=== PATIENT | female | born 1940 | race Caucasian/White ===

== ENCOUNTER 2019-03-03 07:36 | Inpatient (IN) | payer MEDICARE, MEDICAID, SELFPAY ==
[2019-02-20 15:19] VITALS: BP 142/63; PULSE 95; RESP 16; TEMP 37.1; O2SAT 95; BMI 31.1
[2019-02-20 15:56] LABS: Absolute Lymphocyte Count 1.29 X10^3/uL (0.83-4.51); Absolute Neutrophil Count 2.6 X10^3/uL (2.0-7.7); Basophil# 0.03 X10^3/uL; Basophil% 0.7 % (0-1); Eosinophil# 0.06 X10^3/uL; Eosinophils% 1.3 % (0-5); Hematocrit 34.2 % (37-47); Hemoglobin 11.1 g/dL (12.0-15.0); Lymphocyte # 1.29 X10^3/ul (4.0); Lymphocyte % 28.4 % (19-41); Mean Corp Hgb Conc 32.5 g/dL (32-36); Mean Corpuscular Hgb 30.5 pg (27.0-32.0); Mean Platelet Vol. 9.7 fl (6.2-12.0); Monocyte# 0.56 X10^3/uL; Monocyte% 12.3 % (0-10); NRBC Flagged by Analyzer 0 % (0-5); Neutrophil # 2.59 X10^3/uL (2.7-7.7); Neutrophil % 57.1 % (47-70); Platelet Count 198 K/mm3 (150-450); RBC Distribution Width CV 13.9 % (11.6-14.6); RBC Distribution Width SD 47.5 fl (35.1-43.9); Red Blood Count 3.64 M/mm3 (4.2-5.4); White Blood Count 4.5 K/mm3 (4.4-11.0)
[2019-02-20 16:07] LABS: Anion Gap 8 (5-15); BUN 27 mg/dL (7-18); BUN/Creat Ratio 22.5 RATIO (10-20); Calcium,Total 8.4 mg/dL (8.5-10.1); Chloride 110 mmol/L (98-107); EST Glomerular Filtration Rate 46 mL/min (>60); Est Glom Filt Rate - Afr Amer 56 mL/min (>60); Glucose 156 mg/dL (74-106); Potassium 3.9 mmol/L (3.5-5.1); Sodium Level 142 mmol/L (136-145)
[2019-03-03] VITALS (14 sets, daily range): BP systolic 97–149; BP diastolic 45–78; PULSE 66–96; RESP 15–18; TEMP 36.1–36.5; O2SAT 95–100; BMI 31.1
[2019-03-03 06:01] LABS: Bedside Glucose 165 mg/dL (70-110)
[2019-03-03] MEDS: Acetaminophen 500 MG Tablet 1000 MG PO ×3 (06:07→21:21)
[2019-03-03] MEDS: Gabapentin 600 MG Tablet PO (06:07)
[2019-03-03] MEDS: Magnesium Sulfate 4gm/100mL 4 GM/100 ML IV.SOLN. IV (06:10)
[2019-03-03] MEDS: Lactated Ringers 1,000 ML 100 ML IV ×2 (06:15→10:38)
--- NOTE | 2019-03-03 07:15 | KNEE_PTH ---
PATIENT: JASON HUYNH LOC: MS3 U#:[id number] AGE/SX: 78/F ROOM: MS305 RE03/03/[address]: Dr. Joaquin Conway DO : 1940 BED: 1 DIS: 03/06/2019 SPEC #: [id number] RECD: 03/03/19 12:17 STATUS: KAMLESH REShannan #: [id number] MAYTE: 03/03/19 07:[address]: Joaquin Conway DEPT: SURGICAL PATHOLOGY RECD BY: Sergey Shin ENTERED: 03/03/19 13:28 SP TYPE: TOTAL KNEE OTHR DR: Dr. Shira Joe MD Tissues: Knee, NOS Procedures: Decalcification bone/plaque Surgery Specimen Level IV HEADER OPERATION: ERAS, total knee replacement, left knee cortisone injection PRE-OP DIAGNOSIS: Unilateral primary osteoarthritis TISSUE SUBMITTED: Right knee bone/tissue MICROSCOPIC DIAGNOSIS Bone and soft tissue of right knee, total knee resection: Severe degenerative joint disease. Mild synovial hyperplasia with associated mild chronic inflammation. AM:camila 03/07/19 MICROSCOPIC DESCRIPTION Slides are reviewed. GROSS DESCRIPTION Received is one container designated bone and soft tissue right knee. The specimen consists of multiple fragments of carlson-yellow bone measuring in aggregate 15 x 13 x 2 cm. Also in the specimen container are multiple fragments of yellow-white soft tissue measuring in aggregate 7 x 5 x 2 cm. A number of bony fragments contain articular surfaces consistent with tibial plateau and femoral condyle and displaying prominent osteophyte formation, eburnation, and bone erosion. Advanced Manufacturing Consultant sections are submitted in two cassettes as follows: 1 - soft tissue, 2 - bone after decalcification. / AM:camila 03/03/19 TC: CPT: 82979, [id number]
[2019-03-03] MEDS: Cefazolin 2 GM in 0.9% Normal Saline 100 ML IV (07:30)
--- NOTE | 2019-03-03 09:13 | PCM.OPRPT ---
Report of Operation Date of Procedure: 03/03/19 Pre-Operative Diagnosis: QA right knee with valgus deformity Post-Operative Diagnosis: same Surgery/Procedure Performed:: Right TKR Description of Surgical Findings:: Primary Surgeon/Physician: Joaquin Conway industrial training specialist: Nas Barney PA-C industrial training specialist: Pre-Operative Diagnosis: OA bilateral knees Post-Operative Diagnosis: same Surgery/Procedure Performed: Right TKR, cortisone injection left Estimated Blood Loss: 25 cc Specimen's Removed: bone Type of Anesthesia: general ASA Class: 3 Implants: [[place] triathlon size 4 PS cemented femur, size 4 tibia, 9 mm polyethylene spacer and 29 mm patella] Indications: Patient has severe end-stage osteoarthritis diagnosed via x-rays in the knee. They have failed all forms of conservative measures including activity modification, injections, anti-inflammatories, use of assistive device. The patient has pain that affects on a daily basis and prevents him from doing things that they enjoyed. They have elected to undergo the above procedure. The risks of the procedure were discussed at length and their questions were answered. Procedure Description: The patient was greeted in the preoperative area. The [right ] knee was then marked with a surgical marker. Patient was then taken to or [address]. They were administered a dose of antibiotics as well as tranexamic acid. Once adequate anesthesia was obtained and airway was secured to placed in supine position on the operating room table. A well-padded tourniquet was placed on the affected extremity. Leg was then prepped and draped in the usual sterile fashion from the knee down. Ioban was used on the skin. Surgical timeout was then performed and confirmed with all present. Six-inch Esmarch was used to examine the limb and tourniquet was then inflated to 250 mmHg. A longitudinal incision was then planned and carried out in the anterior aspect of the knee. The dissection was then carried the length of the incision the extensor mechanism was identified. Standard medial parapatellar arthrotomy was then performed revealing severe eburnation of bone and periarticular osteophytes. There is complete loss of cartilage especially in the medial compartment with varus alignment. Anterior fat pad was removed for visualization purposes and the anterior medial aspect of the tibia was skeletonized for exposure to the knee. The knee was then flexed the patella was inverted. Opening reamer was then used in the femur approximately 1 cm anterior to the attachment of the PCL. The intramedullary valgus wand was then placed in the femur set at 5? of valgus. The distal femoral cutting jig was then applied to the femur with anticipated resection of approximately 8 mm. This was then made with a oscillating saw. The sizing guide was then placed referencing off the posterior condyles and also reference off the epicondylar axis. This was measured and the appropriate size 4-in-1 cutting jig was then applied to the distal femur. Anterior posterior cuts were made followed by the anterior and posterior chamfer cuts. These bony pieces and fragments were removed and placed on the back table. Posterior retractor was then utilized and the tibia was subluxed anteriorly. Intramedullary tibial alignment jig was then applied to the tibia referencing off the medial one third of the tibial tubercle the anterior tibial spine the middle aspect of the tibiotalar joint. Also reference off patient's wrangell slope. The tibial cutting jig was then pinned with anticipated resection of 2 mm off of the deficient medial tibial condyle. This cut was made with the oscillating saw. Once this was complete a laminar armed security professional was utilized in both medial lateral meniscus were removed and a posterior capsular osteophytes were also removed. Posterior capsule release was performed in the posterior capsule as well as the geniculate arteries are treated with the aqua Joao. The tibia was incised and the appropriate sized tibial tray was then pinned. The femoral box cutting jig was then applied to the femur and the box was prepared removing a portion of the intercondylar notch. The femoral trial was then placed and the knee was trialed. Full flexion-extension were easily achieved. The knee seemed to balance quite nicely. Any remaining osteophytes were removed at this time. Once this was complete the patella was everted and the Fusion Antibodies patella reaming device was then utilized the patella was then placed in the appropriate jig and reamer was then used to remove approximately 9 mm of the undersurface of the patella. A soft tissue remaining was in the way was removed and patella trial was then placed listed maintain excellent tracking using the no thumbs technique. The tibial tray at this point was punched to accommodate the fins of the final implant. At this point cement was mixed on the back table. The trial components were removed and the knee was copiously irrigated. Did use a cocktail of injection for postoperative pain control. The final components were then cemented in the standard fashion and excess cement was removed with cement removal tools and patellar clamp is placed in the patella. As the cement had cured in full extension tourniquet was deflated and hemostasis was perfect with Bovie cautery as well as the aqua Manus. Needle is once again trialed with different size polyethylenes to ensure the full range of motion was achieved as well as excellent balancing ligamentously was achieved. At this point the knee was copiously irrigated. Final implant was then inserted locking mechanism was engaged and confirmed to be locked. The arthrotomy was then closed with #1 Vicryl aggravate type fashion interrupted. Subcutaneous tissue was closed with 0 Vicryl and surgical cintia were placed in the skin. A occlusive silver impregnated dressing was then applied followed by well-padded sterile dressing secured with an Paxton wrap. The left knee was prepared sterilely and injected with 4 cc of 1% Lidocaine without epinephrine and 2 cc of Celestone Soluspan. The patient was taken to the PACU in stable condition. No complications known at this time. Postoperatively we will maintain standard total knee postoperative protocol. The use of the physician assistant store manager sales was integral during this procedure. They assisted with positioning, placement of the tourniquet, retracting, closure and placement of the dressing. The procedure would have been much more difficult without their expertise and assistance industrial training specialist: Nas Barney Type of Anesthesia:: General Anesthesiologist: Ari Patrick Specimen's removed: bone Estimated Blood Loss (mL): 25 cc - Admit VTE Documentation VTE Present on Admission: No VTE Mechan Device Prophylaxis: SCD's, Thigh High ELGIN Hose VTE Pharm Prophylaxis ordered?: Yes
[2019-03-03] MEDS: Betamethasone/Betamethasone 30 MG/5 ML Vial (09:45)
[2019-03-03 10:21] LABS: Hematocrit 32.1 % (37-47); Hemoglobin 10.2 g/dL (12.0-15.0); Mean Corp Hgb Conc 31.8 g/dL (32-36); Mean Corpuscular Hgb 30.6 pg (27.0-32.0); Mean Corpuscular Volume 96.4 fL (81-99); Mean Platelet Vol. 9.3 fl (6.2-12.0); Platelet Count 179 K/mm3 (150-450); RBC Distribution Width CV 14.4 % (11.6-14.6); RBC Distribution Width SD 50.4 fl (35.1-43.9); Red Blood Count 3.33 M/mm3 (4.2-5.4); White Blood Count 7.1 K/mm3 (4.4-11.0)
[2019-03-03 10:31] LABS: Anion Gap 7 (5-15); BUN 16 mg/dL (7-18); BUN/Creat Ratio 16.9 RATIO (10-20); Calcium,Total 8.3 mg/dL (8.5-10.1); Chloride 109 mmol/L (98-107); Creatinine, Serum 0.95 mg/dL (0.55-1.02); EST Glomerular Filtration Rate 61 mL/min (>60); Est Glom Filt Rate - Afr Amer 74 mL/min (>60); Estimated Creatinine Clearance 38.02 ml/min; Glucose 165 mg/dL (74-106); Potassium 3.4 mmol/L (3.5-5.1); Sodium Level 140 mmol/L (136-145)
[2019-03-03] MEDS: Lactated Ringers 1,000 ML 125 ML IV (12:01)
[2019-03-03] MEDS: Senna/Docusate Sodium 1 Tablet 2 TABLET PO ×2 (13:47→21:21)
[2019-03-03] MEDS: hydroCHLOROthiazide 12.5mg 12.5 MG PO (13:47)
--- NOTE | 2019-03-03 14:39 | CASEMGMT ---
Social Work Note RN updated this worker that pt's family is at [facility] and is asking what they will do if TCU/RU doesn't have any beds for pt. SW informed RN that RU doesn't have any beds until Sunday and to inform the family that this worker will speak with pt tomorrow regarding discharge plans as pt was just admitted to floor today. JEMIMA placed a call to referral line and provided referral. Elizabeth with TCU states they will have a bed for pt on as pt has Medicare. JEMIMA placed transfer to extended care facility document on pt's chart. Plan: TCU . JEMIMA will update pt's family tomorrow Barbara Payan MSW, LANE ATTENDANT
--- NOTE | 2019-03-03 14:50 | CASEMGMT ---
RN CM Face to Face with patient for initial transition planning/care coordination assessment. RN CM introduced self and role at [facility]. Patient lying in bed, alert and oriented. Patient willing to participate in assessment and is able to answer all questions appropriately. Care providers, pharmacy, and demographics verified. Patient wishes to discharge to TCU or [facility] SNF for additional therapy. Patient states she has no further needs or concerns at this time. JEMIMA Payan updated regarding request for TCU/SNF referral. PCP: Tatyana Specialists: jazmin Burrell Preferred Pharmacy: [facility] Insurance: [employer] MADDIE Prescription Benefit: yes Living Will/HPOA: yes, daughter Brii Walton LNOK: 2 daughters, granddaughter Living Arrangements: Patient lives with daughter, who works during the day, in a basement apartment, no steps to enter the home. Patient states she was independent prior to surgery Transportation: daughter DME/HHC: Patient states she has raised toilet, cane, and walker at home. No previous SNF or HHC. Disposition Plan: TCU vs [facility] Barbara CARDENAS, RN, CM
[2019-03-03] MEDS: Cefazolin 1 GM/50 ML BAG IV ×2 (16:19→23:24)
[2019-03-03] MEDS: Aspirin 325 MG Tablet PO (18:04)
[2019-03-03] MEDS: Atorvastatin Calcium 20 MG Tablet PO (21:21)
[2019-03-04 02:36] VITALS: BP 143/51; PULSE 75; RESP 16; TEMP 36.6; O2SAT 94
[2019-03-04 06:19] LABS: Hematocrit 28.8 % (37-47); Hemoglobin 9.5 g/dL (12.0-15.0); Mean Corpuscular Hgb 31.3 pg (27.0-32.0); Mean Corpuscular Volume 94.7 fL (81-99); Mean Platelet Vol. 9.8 fl (6.2-12.0); Platelet Count 165 K/mm3 (150-450); RBC Distribution Width SD 47.8 fl (35.1-43.9); Red Blood Count 3.04 M/mm3 (4.2-5.4)
[2019-03-04] MEDS: Acetaminophen 500 MG Tablet 1000 MG PO ×3 (06:34→21:53)
[2019-03-04 06:46] LABS: Anion Gap 7 (5-15); BUN 25 mg/dL (7-18); BUN/Creat Ratio 19.8 RATIO (10-20); Calcium,Total 7.8 mg/dL (8.5-10.1); Chloride 108 mmol/L (98-107); Creatinine, Serum 1.26 mg/dL (0.55-1.02); EST Glomerular Filtration Rate 44 mL/min (>60); Est Glom Filt Rate - Afr Amer 53 mL/min (>60); Estimated Creatinine Clearance 28.66 ml/min; Glucose 158 mg/dL (74-106); Potassium 4.2 mmol/L (3.5-5.1); Sodium Level 139 mmol/L (136-145)
[2019-03-04 07:30] VITALS: O2SAT 96
--- NOTE | 2019-03-04 07:51 | PCM.PN.ORT ---
Subjective: Patient sitting at bedside eating breakfast. Patient states she reports her pain is a 2 today. Patient denies chest pain, shortness of breath, calf pain, nausea vomiting. Patient otherwise has no other complaints. Objective: The dressing is clean dry intact. Negative signs and symptoms of DVT. Vital signs and labs within normal limits. Patient has slightly behind on her p.o. fluid intake. Patient neurovascular is otherwise intact. Patient has no respiratory distress, speaking in full sentences. - Physical Exam General: Alert, Oriented x3, Cooperative HEENT: PERRLA Oral: Moist Mucosa Psych/Mental Status: Normal Affect, Alert and oriented to time, place, person, mood and affect Vital Signs Temp Pulse Resp BP Pulse Ox 97.8 F 75 16 143/51 H 94 03/04/19 02:36 03/04/19 02:36 03/04/19 02:36 03/04/19 02:36 03/04/19 02:36 Oxygen Flow Rate (L/min) 6 Oxygen Delivery Method Room Air Weight: 74.8 kg Body Mass Index (BMI) 31.1 Intake and Output for Last 24 Hours 03/02/19 03/03/19 03/04/19 23:59 23:59 23:59 Intake Total 2668 / 3028 360 / 360 Output Total 400 / 800 460 / 460 Balance 2268 / 2228 -100 / -100 Laboratory Tests Past 24 Hrs 03/03/19 03/03/19 03/04/19 10:12 10:12 05:38 WBC 7.1 8.0 RBC 3.33 L 3.04 L Hgb 10.2 L 9.5 L Hct 32.1 L 28.8 L MCV 96.4 94.7 MCH 30.6 31.3 MCHC 31.8 L 33.0 RDW Std Deviation 50.4 H 47.8 H RDW Coeff of Tiffany 14.4 14.0 Plt Count 179 165 MPV 9.3 9.8 Sodium 140 Potassium 3.4 L Chloride 109 H Carbon Dioxide 24.0 Anion Gap 7 BUN 16 Creatinine 0.95 Estim Creat Clear Calc 38.02 Est GFR (MDRD) Af Amer 74 Est GFR (MDRD) Non-Af 61 BUN/Creatinine Ratio 16.9 Glucose 165 H Calcium 8.3 L 03/04/19 05:38 WBC RBC Hgb Hct MCV MCH MCHC RDW Std Deviation RDW Coeff of Tiffany Plt Count MPV Sodium 139 Potassium 4.2 Chloride 108 H Carbon Dioxide 24.0 Anion Gap 7 BUN 25 H Creatinine 1.26 H Estim Creat Clear Calc 28.66 Est GFR (MDRD) Af Amer 53 L Est GFR (MDRD) Non-Af 44 L BUN/Creatinine Ratio 19.8 Glucose 158 H Calcium 7.8 L Medical Necessity - Tobacco Use Smoking Status: Never smoker Tobacco Use: Non-smoker Assessment/Plan Status post right total knee arthroplasty Injected left knee intraoperatively with 2 cc of Celestone 4 cc 1% lidocaine Plan 1. Continue all pain medications as prescribed 2. Begin physical therapy today, weight-bear as tolerated with walker 3. Aspirin 325 mg 1 p.o. every 12 hours x30 days for postop DVT prophylaxis 4. Encourage incentive spirometry 5. Encourage oral fluid intake 6. Possible discharge to TCU tomorrow
[2019-03-04] MEDS: Aspirin 325 MG Tablet PO ×2 (07:53→16:38)
[2019-03-04] MEDS: Multivitamins,Ther W-Minerals Tablet 1 TABLET PO (07:53)
[2019-03-04 08:02] VITALS: BP 111/42; PULSE 80; RESP 16; TEMP 36.9; O2SAT 97
--- NOTE | 2019-03-04 10:08 | CASEMGMT ---
Social Work Note JEMIMA reviewed notes, pt walked 180ft contact guard. SW met with pt and introduced self and role at [facility]. Pt is alert and orientated x3. SW informed pt that RU doesn't have any beds at this time. Pt stats that TCU is her next choice and prefers TCU. Pt states that it would be easier for her family if she remains at [facility] as her family works during the day. JEMIMA informed pt that TCU does have a bed available and is able to accept pt . JEMIMA explained Medicare guidelines to pt. Pt states understanding, denied additional needs or concerns at this time. Plan: TCU Barbara Payan GARMENT PARTS CUTTER MACHINE, ELECTRIC RAZOR ASSEMBLER
[2019-03-04] MEDS: hydroCHLOROthiazide 12.5mg 12.5 MG PO (10:43)
[2019-03-04] MEDS: Senna/Docusate Sodium 1 Tablet 2 TABLET PO ×2 (10:43→21:52)
[2019-03-04] MEDS: Lisinopril 10 MG Tablet PO (10:43)
[2019-03-04 13:57] VITALS: BP 118/51; PULSE 80; RESP 18; TEMP 36.9; O2SAT 99
[2019-03-04 16:35] VITALS: BP 155/56; PULSE 82; RESP 16; TEMP 36.7; O2SAT 100
[2019-03-04 21:48] VITALS: BP 124/43; PULSE 83; RESP 20; TEMP 36.7; O2SAT 96
[2019-03-04] MEDS: Atorvastatin Calcium 20 MG Tablet PO (21:52)
[2019-03-04] MEDS: 0.9% NaCl Peripheral Flush Adult/Peds IV (21:54)
[2019-03-05] MEDS: traMADol 50 MG Tablet PO (01:16)
[2019-03-05 02:00] VITALS: BP 104/50; PULSE 80; RESP 20; TEMP 36.4; O2SAT 96
[2019-03-05] MEDS: Acetaminophen 500 MG Tablet 1000 MG PO ×3 (05:26→21:00)
[2019-03-05] MEDS: oxyCODONE 5 MG Tablet 2.5 MG PO (05:27)
[2019-03-05 07:33] VITALS: O2SAT 95
[2019-03-05 10:09] VITALS: BP 96/34; PULSE 78; RESP 18; TEMP 36.5; O2SAT 96
[2019-03-05] MEDS: Senna/Docusate Sodium 1 Tablet 2 TABLET PO (10:16)
[2019-03-05] MEDS: Multivitamins,Ther W-Minerals Tablet 1 TABLET PO (10:16)
[2019-03-05] MEDS: Aspirin 325 MG Tablet PO ×2 (10:16→17:36)
--- NOTE | 2019-03-05 11:40 | CASEMGMT ---
Social Work Note Pt is able to discharge to TCU tomorrow. Plan: TCU Barbara Payan CUSTOMER ACCOUNT EXECUTIVE, SLOT SUPERVISOR
[2019-03-05 12:04] VITALS: BP 116/51; PULSE 78
--- NOTE | 2019-03-05 12:14 | PCM.PN.ORT ---
Subjective: Patient sitting at bedside. Patient states pain is well-managed. Patient did states she had a lot of pain last night, however it is gotten better today. Patient denies chest pain, shortness breath, calf pain, nausea vomiting. Patient states she is ready for discharge to TCU to continue her physical therapy. Objective: Dressings clean dry intact. Negative signs and symptoms of DVT. Patient was hypotensive, her daily hypertensive meds were held today she is normotensive at this time. Otherwise vitals labs within normal limits. She has no respiratory distress, speaking in full sentences. Patient is otherwise neurovascularly intact and afebrile. - Physical Exam General: Alert, Oriented x3, Cooperative HEENT: PERRLA Oral: Moist Mucosa Neurological: Cranial nerves II-XII grossly intact Psych/Mental Status: Normal Affect, Alert and oriented to time, place, person, mood and affect Vital Signs Temp Pulse Resp BP Pulse Ox 97.7 F L 78 18 116/51 L 96 03/05/19 10:09 03/05/19 12:04 03/05/19 10:09 03/05/19 12:04 03/05/19 10:09 Oxygen Flow Rate (L/min) 6 Oxygen Delivery Method Room Air Weight: 74.8 kg Body Mass Index (BMI) 31.1 Intake and Output for Last 24 Hours 03/03/19 03/04/19 03/05/19 23:59 23:59 23:59 Intake Total 2668 / 3028 2310 / 2810 650 / 650 Output Total 400 / 800 1410 / 1410 600 / 600 Balance 2268 / 2228 900 / 1400 50 / 50 Medical Necessity - Tobacco Use Smoking Status: Never smoker Tobacco Use: Non-smoker Assessment/Plan Status post right total knee arthroplasty Injected left knee intraoperatively with 2 cc of Celestone 4 cc 1% lidocaine Plan 1. Continue all pain medications as prescribed 2. Continue physical therapy today, weight-bear as tolerated with walker 3. Aspirin 325 mg 1 p.o. every 12 hours x30 days for postop DVT prophylaxis 4. Encourage incentive spirometry 5. Encourage oral fluid intake 6. Discharge to TCU tomorrow
--- NOTE | 2019-03-05 12:29 | DCINST_ITS ---
Discharge Diet: No Restrictions Discharge Activity: May Not Drive, May Shower, Use Walker May shower in (days): 2 Ice area for (Minutes): 20 - each hour while awake. Weight Bearing Status: Weight bearing as tolerated Elevate: Operative Extremity Additional Activity Instructions:: Wear elastic stockings for 2 weeks after your surgery. Call your doctor if your incision/area has: Continuous Slow Oozing, Sudden Increased Bleeding, Increased Pain/ Swelling, Increased Redness, Foul Smelling Discharge Call your doctor if you observe: Fever of 101 or Higher, Coldness, Increased Pain - in extremity, Numbness or Tingling, Change in Color, Calf discomfort, Uncontrolled pain Change Dressing in (Days):: 0 - and daily as needed. Remove Dressing in (days):: 8 - remove and DC dressing 03-15-19 Cleanse incision/area with: Soap & Water Allergies/Adverse Reactions: Allergies No Known Allergies Allergy (Verified 03/03/19 05:58) Medications to take at Discharge Hydrochlorothiazide 12.5 mg PO DAILY 02/20/19 Lisinopril [Prinivil] 10 mg PO DAILY 02/20/19 Lovastatin 40 mg PO DAILY 02/20/19 Multivit with Calcium,Iron,Min [Multiple Vitamins For Women] 1 ea PO DAILY 02/20/19 Acetaminophen [Tylenol] 1,000 mg PO Q8 #90 tab 03/05/19 Aspirin 325 mg PO BIDCM #60 tab 03/05/19 traMADol [Ultram] 50 - 100 mg PO Q6H PRN PRN 7 Days #60 tab 03/05/19 The following prescriptions were given: Aspirin 325 mg PO BIDCM #60 tab Prescription Printed Acetaminophen [Tylenol] 1,000 mg PO Q8 #90 tab Prescription Printed traMADol [Ultram] 50 - 100 mg PO Q6H PRN PRN 7 Days #60 tab PRN Reason: Pain Score 4-10/10 Prescription Printed Primary Care Physician: Shira Joe MD [Primary Care Provider] - Test Results: Test results from this visit will be discussed in further detail at your follow- up appointment, if applicable. Please Follow Up With: Joaquin Conway DO When: as scheduled see pink sheet
[2019-03-05 15:49] VITALS: BP 107/86; PULSE 80; RESP 18; TEMP 37; O2SAT 96
[2019-03-05 21:00] VITALS: BP 125/75; PULSE 73; RESP 16; TEMP 36.7; O2SAT 96
[2019-03-05] MEDS: Atorvastatin Calcium 20 MG Tablet PO (21:00)
[2019-03-06 03:02] VITALS: BP 139/65; PULSE 95; RESP 18; TEMP 36.4; O2SAT 100
[2019-03-06] MEDS: Acetaminophen 500 MG Tablet 1000 MG PO ×2 (04:42→14:14)
[2019-03-06 08:17] VITALS: O2SAT 98
--- NOTE | 2019-03-06 08:52 | PCM.PN.ORT ---
Subjective: The patient was sitting in bedside chair upon examination. Patient denies any chest pain, shortness of breath, dizziness, lightheadedness, nausea or vomiting, or calf pain. Pain is controlled on medications. No adverse overnight events. Overall patient is doing well today. She is only required Tylenol. Her pain is better controlled. Plan is for her to go to the transitional care unit today. Objective: Vital signs stable and afebrile. Patient is able to plantarflex and dorsiflex actively. Sensation is intact to light touch to saphenous, sural, superficial and deep peroneal, and tibial distribution. Dressing is clean dry and intact. Negative Homans bilaterally, negative signs and symptoms of DVT. - Physical Exam Vital Signs Temp Pulse Resp BP Pulse Ox 97.5 F L 95 18 139/65 H 98 03/06/19 03:02 03/06/19 03:02 03/06/19 03:02 03/06/19 03:02 03/06/19 08:17 Oxygen Flow Rate (L/min) 6 Oxygen Delivery Method Room Air Weight: 74.8 kg Body Mass Index (BMI) 31.1 Intake and Output for Last 24 Hours 03/04/19 03/05/19 03/06/19 23:59 23:59 23:59 Intake Total 2310 / 2810 890 / 1190 400 / 400 Output Total 1410 / 1410 1025 / 1325 300 / 300 Balance 900 / 1400 -135 / -135 100 / 100 Medical Necessity - Tobacco Use Smoking Status: Never smoker Tobacco Use: Non-smoker Assessment/Plan 1. S/P right total knee arthroplasty POD #3 2. Continue Pain Medications: Tylenol primarily for pain control, Ultram for breakthrough pain 3. DVT Prophylaxis: Aspirin 325 mg twice daily for 4 weeks postoperatively 4. PT/OT: Weightbearing as tolerated 5. H & H: 9.5/28.8, asymptomatic 6. Encouraged Incentive Spirometry 7. Disposition: Orthopedically stable, plan will be for discharge to transitional care unit today. Prescriptions are attached to chart. Patient will follow-up per postop instructions.
[2019-03-06 10:13] VITALS: BP 146/66; PULSE 95; RESP 18; TEMP 36.6; O2SAT 98
[2019-03-06] MEDS: hydroCHLOROthiazide 12.5mg 12.5 MG PO (10:15)
[2019-03-06] MEDS: Aspirin 325 MG Tablet PO (10:15)
[2019-03-06] MEDS: Lisinopril 10 MG Tablet PO (10:15)
[2019-03-06] MEDS: Multivitamins,Ther W-Minerals Tablet 1 TABLET PO (10:16)
--- NOTE | 2019-03-06 11:46 | CASEMGMT ---
Social Work Note Pt is discharging to TCU today. SW placed a call to Elizabeth with TCU and updated her that pt will be discharged today. Plan: TCU today Barbara Payan GAMMA FACILITIES OPERATOR, SHOWER ROOM ATTENDANT
--- NOTE | 2019-03-06 12:15 | NURSING ---
NURSE TO NURSE REPORT PROVIDED TO PETROS HERNANDEZ TCU- EXT [id number]
[2019-03-06 14:20] VITALS: BP 145/63; PULSE 92; RESP 18; TEMP 36.9; O2SAT 99
== END 2019-03-06 15:45 | disposition skilled nursing facility (03) | DRG 470 ==
LOC: ACINP 08:15 → MS3 08:15
PROVIDERS: Admitting Provider Orthopaedic Surgery; Family Provider Internal Medicine Infectious Disease; PCP Internal Medicine Infectious Disease; Referring Provider Orthopaedic Surgery; Visit Provider Orthopaedic Surgery
PROC: 0SRC0J9 Replacement of Right Knee Joint with Synthetic Substitute, Cemented, Open Approach (ICD-10-PCS; CPT 27447; principal; 2019-03-03 06:50)
DX: M17.11 Unilateral primary osteoarthritis, right knee (principal); M21.061 Valgus deformity, not elsewhere classified, right knee; I25.2 Old myocardial infarction; E78.00 Pure hypercholesterolemia, unspecified; I10 Essential (primary) hypertension; Z79.82 Long term (current) use of aspirin; Z79.899 Other long term (current) drug therapy; I95.9 Hypotension, unspecified
CPT/HCPCS: 36415; 80048; 82962; 85025; 85027; 87081; 88305; 88311; 97110; 97116; 97161; 97166; 97530; 97535; C1776; J7120; 90686; A4216; J0702; J2405

== ENCOUNTER 2019-03-06 16:00 | Inpatient (IN) | payer MEDICARE, MEDICAID, SELFPAY ==
[2019-03-03 06:00] VITALS: BMI 31.1
[2019-03-06 16:09] VITALS: BP 147/71; PULSE 95; RESP 20; TEMP 37.4; O2SAT 89
[2019-03-06 16:16] VITALS: BMI 31.6
[2019-03-06 16:20] VITALS: BMI 31.6
[2019-03-06 16:37] VITALS: PULSE 70
[2019-03-06] MEDS: Aspirin 325 MG Tablet PO (18:03)
[2019-03-06] MEDS: Atorvastatin Calcium 10 MG Tablet PO (20:22)
[2019-03-06] MEDS: Acetaminophen 500 MG Tablet 1000 MG PO (20:22)
--- NOTE | 2019-03-06 21:03 | NURSING ---
Code status discussed with pt, pt wishes to be a full code.
--- NOTE | 2019-03-06 22:18 | HP.PCM_ITS ---
Problem List (1) Debility Status: Acute (2) Osteoarthritis of right knee Status: Chronic (3) Hypertension Status: Chronic (4) Hyperlipidemia Status: Chronic (5) Osteoarthritis Status: Chronic (6) History of KS (myocardial infarction) Status: Chronic History of Present Illness Date of Admission: 03/06/19 Chief Complaint: Here for rehabilitation, strengthening, prior to discharge home alone. The patient is a 78 year old Female with below past medical history underwent right total knee replacement 03/03/[address] Conway. Postoperative course uncomplicated. 03/06/2019 Admit to TCU with debility, here for rehabilitation, strengthening, prior to discharge home alone. Past Medical History Past Medical History (Chronic Problems): Chronic Problems Osteoarthritis of right knee (Chronic) Hypertension (Chronic) Hyperlipidemia (Chronic) Osteoarthritis (Chronic) History of KS (myocardial infarction) (Chronic) Allergies No Known Allergies Allergy (Verified 03/03/19 05:58) Home Medications: Ambulatory Orders Medication Instructions Recorded Hydrochlorothiazide 12.5 mg PO DAILY 02/20/19 Lisinopril [Prinivil] 10 mg PO DAILY 02/20/19 Lovastatin 40 mg PO DAILY 02/20/19 Multivit with Calcium,Iron,Min 1 ea PO DAILY 02/20/19 [Multiple Vitamins For Women] traMADol [Ultram] 50 - 100 mg PO Q6H PRN PRN 7 Days 03/05/19 #60 tab Acetaminophen [Tylenol] 1,000 mg PO Q8 03/06/19 Aspirin 325 mg PO BIDCM 03/06/19 Surgical History: cholecystectomy, total knee arthroplasty - Right., - - Tumor removed back of head, . 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 Lives: Alone Smoking Status: Never smoker Tobacco Use: Non-smoker Alcohol: None Drugs: None - *Family History Paternal History Items: Hypertension Maternal History Items: Cancer Review of Systems Constitutional: Denies: Chills, Fever, Weight Change HEENT: Denies: Head Aches, Sinus Congestion, Sinus Drainage Cardiovascular: Denies: Chest Pain, Palpitations Respiratory: Denies: Cough, Shortness of breath at rest, Sputum production Gastrointestinal: Denies: Abdominal Pain, Nausea, Vomiting Genitourinary: Denies: Dysuria Musculoskeletal: Denies: Joint Pain, Joint Tenderness Skin: Denies: Rash, Wounds Neurological: Denies: Numbness, Tingling, Focal weakness Psychiatric: Denies: Anxiety, Depression, Homicidal Ideations, Suicidal Ideations Hematologic/ Lymphatic: Denies: Easy Bruising, Easy Bleeding VTE Information - Inpt Only VTE Present on Admission: No VTE Mechan Device Prophylaxis: Knee High ELGIN Hose VTE Pharm Prophylaxis ordered?: Yes Patient Problems: Active and Suspected Problems Debility (Acute) - Physical Exam General: Alert, Oriented x3, Cooperative HEENT: Atraumatic, PERRLA, EOMI, Normocephalic Neck: Supple, No JVD, Negative Carotid Bruits Lungs: Clear to auscultation, Normal air movement Cardiovascular: Regular rate, No murmurs Abdomen: Bowel Sounds Present, Soft, Non Tender Extremities: No edema, Capillary Refill Less than 3 Seconds Skin: No rashes, No breakdown, Incision - Right knee incision clean, dry, intact. Musculoskeletal: No Tenderness to Palpation of Joints or Extremities Neurological: Cranial nerves II-XII grossly intact Psych/Mental Status: Normal Affect, Appropriate Vital Signs Temp Pulse Resp BP Pulse Ox 99.3 F H 70 20 H 147/71 H 89 03/06/19 16:09 03/06/19 16:37 03/06/19 16:09 03/06/19 16:09 03/06/19 16:09 Oxygen Delivery Method Room Air Weight: 75.92 kg Body Mass Index (BMI) 31.6 Intake and Output for Last 24 Hours 03/04/19 03/05/19 03/06/19 23:59 23:59 23:59 Intake Total 240 / 240 Balance 240 / 240 Assessment/Plan All Active Problems Debility (Acute) 78 year old female with below past medical history hospitalized for right total knee replacement 03/03/[address] Conway, admitted to TCU with debility, here for rehabilitation, strengthening, prior to discharge home alone. * Debility - PT/OT. * Pain - Tylenol 1000MG Q8H, Tramadol 50 - 100MG Q6H PRN pain (4-7, 8-10) * Bowel - Miralax 17GM daily, Senna/colace 1 tablet BID, Dulcolax 10MG PO daily PRN. * Pneumonia vaccination - Administer Prevnar 13 and/or Pneumovax 23 as necessary. * DVT prophylaxis - Aspirin 325MG BID thru 04/03/2019. * History of KS - Aspirin 81MG 04/04/2019. * Hyperlipidemia - Atorvastatin 10MG QHS. * Hypertension - Lisinopril 10MG daily, HCTZ 12.5MG daily. * Nutrition - MVI daily.
[2019-03-07 05:33] LABS: Absolute Lymphocyte Count 1.28 X10^3/uL (0.83-4.51); Basophil# 0.02 X10^3/uL; Basophil% 0.4 % (0-1); Eosinophil# 0.13 X10^3/uL; Eosinophils% 2.6 % (0-5); Hematocrit 27.1 % (37-47); Hemoglobin 8.6 g/dL (12.0-15.0); Lymphocyte # 1.28 X10^3/ul (4.0); Lymphocyte % 25.3 % (19-41); Mean Corp Hgb Conc 31.7 g/dL (32-36); Mean Corpuscular Hgb 30.4 pg (27.0-32.0); Mean Corpuscular Volume 95.8 fL (81-99); Mean Platelet Vol. 9.7 fl (6.2-12.0); Monocyte% 11.9 % (0-10); NRBC Flagged by Analyzer 0 % (0-5); Neutrophil # 3.02 X10^3/uL (2.7-7.7); Neutrophil % 59.6 % (47-70); Platelet Count 175 K/mm3 (150-450); RBC Distribution Width CV 14.6 % (11.6-14.6); RBC Distribution Width SD 51.7 fl (35.1-43.9); Red Blood Count 2.83 M/mm3 (4.2-5.4); White Blood Count 5.1 K/mm3 (4.4-11.0)
[2019-03-07 05:49] LABS: Anion Gap 6 (5-15); BUN 27 mg/dL (7-18); BUN/Creat Ratio 27.3 RATIO (10-20); Calcium,Total 8.1 mg/dL (8.5-10.1); Chloride 107 mmol/L (98-107); Creatinine, Serum 0.99 mg/dL (0.55-1.02); EST Glomerular Filtration Rate 58 mL/min (>60); Est Glom Filt Rate - Afr Amer 70 mL/min (>60); Estimated Creatinine Clearance 36.48 ml/min; Glucose 101 mg/dL (74-106); Potassium 4.1 mmol/L (3.5-5.1); Sodium Level 139 mmol/L (136-145)
[2019-03-07] MEDS: hydroCHLOROthiazide 12.5mg 12.5 MG PO (06:06)
[2019-03-07] MEDS: Lisinopril 10 MG Tablet PO (06:06)
[2019-03-07] MEDS: Acetaminophen 500 MG Tablet 1000 MG PO ×3 (06:06→21:26)
[2019-03-07] MEDS: Multivitamins,Ther W-Minerals Tablet 1 TABLET PO (08:11)
[2019-03-07] MEDS: Aspirin 325 MG Tablet PO (08:11)
[2019-03-07] MEDS: Tuberculin,Purif.prot.deriv. 50 TU/ML Vial 5 ML ID (10:09)
[2019-03-07 15:38] VITALS: BP 106/61; PULSE 85; RESP 16; TEMP 37; O2SAT 98
[2019-03-07] MEDS: Aspirin 81 MG TAB.CHEW PO (17:05)
[2019-03-07] MEDS: Atorvastatin Calcium 10 MG Tablet PO (21:26)
[2019-03-08] MEDS: Lisinopril 10 MG Tablet PO (04:32)
[2019-03-08] MEDS: Acetaminophen 500 MG Tablet 1000 MG PO ×3 (04:32→21:00)
[2019-03-08] MEDS: hydroCHLOROthiazide 12.5mg 12.5 MG PO (04:32)
[2019-03-08] MEDS: Multivitamins,Ther W-Minerals Tablet 1 TABLET PO (08:39)
[2019-03-08] MEDS: Iron Polysaccharide Complex 150 MG CAPSULE PO (08:39)
[2019-03-08] MEDS: Aspirin 81 MG TAB.CHEW PO ×2 (08:39→17:06)
[2019-03-08 12:11] VITALS: PULSE 88; RESP 18; O2SAT 97
[2019-03-08 15:19] VITALS: BP 137/62; PULSE 94; RESP 21; TEMP 37; O2SAT 99
--- NOTE | 2019-03-08 16:26 | NURSING ---
pt with loose stools and not taking narcotics for pain requesting they be changed. changed order to PRN.
[2019-03-08] MEDS: Atorvastatin Calcium 10 MG Tablet PO (21:00)
[2019-03-09] MEDS: hydroCHLOROthiazide 12.5mg 12.5 MG PO (04:47)
[2019-03-09] MEDS: Lisinopril 10 MG Tablet PO (04:47)
[2019-03-09] MEDS: Acetaminophen 500 MG Tablet 1000 MG PO ×3 (04:47→21:49)
--- NOTE | 2019-03-09 07:17 | NURSING ---
Pt c/o not sleeping last HS. Pt slightly tearful, will update Dr Rizvi.
[2019-03-09] MEDS: Multivitamins,Ther W-Minerals Tablet 1 TABLET PO (08:16)
[2019-03-09] MEDS: Iron Polysaccharide Complex 150 MG CAPSULE PO (08:16)
[2019-03-09] MEDS: Aspirin 81 MG TAB.CHEW PO ×2 (08:16→17:00)
[2019-03-09 15:12] VITALS: BP 132/47; PULSE 90; RESP 18; TEMP 36.8; O2SAT 99
[2019-03-09] MEDS: Atorvastatin Calcium 10 MG Tablet PO (21:49)
[2019-03-09] MEDS: MELATONIN 10 MG TABLET PO (21:49)
[2019-03-10] MEDS: traMADol 50 MG Tablet PO (02:21)
[2019-03-10] MEDS: Acetaminophen 500 MG Tablet 1000 MG PO ×3 (05:59→21:01)
[2019-03-10] MEDS: hydroCHLOROthiazide 12.5mg 12.5 MG PO (05:59)
[2019-03-10] MEDS: Lisinopril 10 MG Tablet PO (05:59)
[2019-03-10] MEDS: Iron Polysaccharide Complex 150 MG CAPSULE PO (08:57)
[2019-03-10] MEDS: Aspirin 81 MG TAB.CHEW PO ×2 (08:58→16:37)
[2019-03-10] MEDS: Multivitamins,Ther W-Minerals Tablet 1 TABLET PO (08:58)
[2019-03-10] MEDS: Citalopram 10 MG Tablet PO (12:16)
--- NOTE | 2019-03-10 15:20 | PCM.PN.RX ---
<Soraida Thomason - Last Filed: 03/10/19 15:20> Progress Note - Pharmacy Subjective: TCU Admission Objective: Allergies No Known Allergies Allergy (Verified 03/03/19 05:58) Current Medications Generic Name Dose Route Start Last Admin Trade Name Freq PRN Reason Stop Dose Admin Acetaminophen 1,000 mg 03/06/19 22:00 03/10/19 12:17 Tylenol PO 1,000 mg Q8 [facility] Administration Aspirin 81 mg 04/04/19 08:00 Aspirin, Baby PO DAILY@0800 [facility] Aspirin 81 mg 03/07/19 17:00 03/10/19 08:58 Aspirin, Baby PO 04/03/19 23:59 81 mg BIDCM [facility] Administration Atorvastatin Calcium 10 mg 03/06/19 22:00 03/09/19 21:49 Lipitor PO 10 mg QHS [facility] Administration Bisacodyl 10 mg 03/06/19 22:29 Dulcolax PO DAILY PRN Constipation Citalopram Hydrobromide 10 mg 03/11/19 06:00 Celexa PO DAILY [facility] Hydrochlorothiazide 12.5 mg 03/07/19 06:00 03/10/19 05:59 PO 12.5 mg DAILY [facility] Administration Lisinopril 10 mg 03/07/19 06:00 03/10/19 05:59 Zestril PO 10 mg DAILY [facility] Administration Melatonin 10 mg 03/09/19 22:00 03/09/19 21:49 Melatonin PO 10 mg QHS [facility] Administration Multivitamins/Minerals 1 tablet 03/07/19 08:00 03/10/19 08:58 Multivitamin With Minerals PO 1 tablet DAILY@0800 [facility] Administration Polyethylene Glycol 17 gm 03/08/19 16:26 Miralax PO DAILY PRN Constipation Polysaccharide Iron Complex 150 mg 03/08/19 08:00 03/10/19 08:57 Ferrex 150 PO 150 mg DAILYCM [facility] Administration Senna/Docusate Sodium 1 tablet 03/08/19 16:26 Senokot-S, Deonna-Colace PO PRN PRN Constipation Tramadol HCl 50 - 100 mg 03/06/19 16:45 03/10/19 02:21 Ultram PO 50 mg Q6H PRN PRN Administration Pain Score 4-10/10 Tuberculin PPD 5 tu 03/14/19 10:00 Tubersol, Aplisol, Ppd ID 03/14/19 10:01 X1 ONE Problem List Debility (Acute) Osteoarthritis of right knee (Chronic) Hypertension (Chronic) Hyperlipidemia (Chronic) Osteoarthritis (Chronic) History of AL (myocardial infarction) (Chronic) Vital Signs Temp Pulse Resp BP Pulse Ox 98.3 F 90 18 132/47 H 99 03/09/19 15:12 03/09/19 15:12 03/09/19 15:12 03/09/19 15:12 03/09/19 15:12 Oxygen Delivery Method Room Air Weight: 75.92 kg Body Mass Index (BMI) 31.6 Sodium 139 mmol/L (136-145) 03/07/19 05:10 Potassium 4.1 mmol/L (3.5-5.1) 03/07/19 05:10 Chloride 107 mmol/L (98-107) 03/07/19 05:10 Carbon Dioxide 26.0 mmol/L (21.0-32.0) 03/07/19 05:10 Anion Gap 6 (5-15) 03/07/19 05:10 BUN 27 mg/dL (7-18) H 03/07/19 05:10 Creatinine 0.99 mg/dL (0.55-1.02) 03/07/19 05:10 Est GFR (MDRD) Af Amer 70 mL/min (>60) 03/07/19 05:10 Est GFR (MDRD) Non-Af 58 mL/min (>60) L 03/07/19 05:10 BUN/Creatinine Ratio 27.3 RATIO (10-20) H 03/07/19 05:10 Glucose 101 mg/dL (74-106) 03/07/19 05:10 Assessment/Plan: 1. Pain: acetaminophen 1000mg PO Q8H, tramadol 50mg PO Q6H PRN pain (4-7/10) and 100mg Q6H PRN pain (8-10/10). Please continue to monitor for increased pain. 2. Hypertension: lisinopril 10mg PO daily and hydrochlorothiazide 12.5mg PO daily. Please continue to monitor BP, renal function and electrolytes. 3. DVT prophylaxis: aspirin 81mg PO BIDCM through 04/03/19. Please continue to monitor for S/S of bleeding. 4. History of AL: aspirin 81mg PO DAILYCM starting 04/04/19. Please monitor for S/S of bleeding once medication is started. *5. Hyperlipidemia: atorvastatin 10mg PO QHS. I did not see a lipid panel in patient's chart. Please consider ordering a lipid panel now and then annually as clinically appropriate. Please continue to monitor for muscle pain. 6. Insomnia (per nursing note): melatonin 10mg PO QHS. Please continue to monitor for insomnia. 7. Anemia (Hgb 8): Ferrex 150mg PO DAILYCM. Please continue to monitor for dark stools and hemoglobin. 8. Overall nutrition: multivitamin 1 tablet PO DAILYCM. Please continue to monitor. *Psychotropic Medications: 1. Depression: citalopram 10mg PO daily. Please consider GDR by 08/2019. Unnecessary Medications: None Bowel Regimen: Miralax 17gm PO daily PRN constipation, senna/docusate 1T PO daily PRN constipation, bisacodyl 10mg PO daily PRN constipation. Please continue to monitor for constipation. Date of Note:: 03/10/19 - Provider Comments Provider responsibility: Provider responsible to enter orders to implement recommendations <Colin Rizvi Chi - Last Filed: 03/10/19 18:20> Progress Note - Pharmacy Subjective: [] Objective: Allergies No Known Allergies Allergy (Verified 03/03/19 05:58) Current Medications Generic Name Dose Route Start Last Admin Trade Name Freq PRN Reason Stop Dose Admin Acetaminophen 1,000 mg 03/06/19 22:00 03/10/19 12:17 Tylenol PO 1,000 mg Q8 [facility] Administration Aspirin 81 mg 04/04/19 08:00 Aspirin, Baby PO DAILY@0800 [facility] Aspirin 81 mg 03/07/19 17:00 03/10/19 16:37 Aspirin, Baby PO 04/03/19 23:59 81 mg BIDCM [facility] Administration Atorvastatin Calcium 10 mg 03/06/19 22:00 03/09/19 21:49 Lipitor PO 10 mg QHS [facility] Administration Bisacodyl 10 mg 03/06/19 22:29 Dulcolax PO DAILY PRN Constipation Citalopram Hydrobromide 10 mg 03/11/19 06:00 Celexa PO DAILY [facility] Hydrochlorothiazide 12.5 mg 03/07/19 06:00 03/10/19 05:59 PO 12.5 mg DAILY [facility] Administration Lisinopril 10 mg 03/07/19 06:00 03/10/19 05:59 Zestril PO 10 mg DAILY [facility] Administration Melatonin 10 mg 03/09/19 22:00 03/09/19 21:49 Melatonin PO 10 mg QHS [facility] Administration Multivitamins/Minerals 1 tablet 03/07/19 08:00 03/10/19 08:58 Multivitamin With Minerals PO 1 tablet DAILY@0800 [facility] Administration Polyethylene Glycol 17 gm 03/08/19 16:26 Miralax PO DAILY PRN Constipation Polysaccharide Iron Complex 150 mg 03/08/19 08:00 03/10/19 08:57 Ferrex 150 PO 150 mg DAILYCM [facility] Administration Senna/Docusate Sodium 1 tablet 03/08/19 16:26 Senokot-S, Deonna-Colace PO PRN PRN Constipation Tramadol HCl 50 - 100 mg 03/06/19 16:45 03/10/19 02:21 Ultram PO 50 mg Q6H PRN PRN Administration Pain Score 4-10/10 Tuberculin PPD 5 tu 03/14/19 10:00 Tubersol, Aplisol, Ppd ID 03/14/19 10:01 [id number] ONE Problem List Debility (Acute) Osteoarthritis of right knee (Chronic) Hypertension (Chronic) Hyperlipidemia (Chronic) Osteoarthritis (Chronic) History of AL (myocardial infarction) (Chronic) Vital Signs Temp Pulse Resp BP Pulse Ox 98.3 F 89 17 111/56 L 95 03/10/19 15:34 03/10/19 15:34 03/10/19 15:34 03/10/19 15:34 03/10/19 15:34 Oxygen Delivery Method Room Air Weight: 75.92 kg Body Mass Index (BMI) 31.6 Sodium 139 mmol/L (136-145) 03/07/19 05:10 Potassium 4.1 mmol/L (3.5-5.1) 03/07/19 05:10 Chloride 107 mmol/L (98-107) 03/07/19 05:10 Carbon Dioxide 26.0 mmol/L (21.0-32.0) 03/07/19 05:10 Anion Gap 6 (5-15) 03/07/19 05:10 BUN 27 mg/dL (7-18) H 03/07/19 05:10 Creatinine 0.99 mg/dL (0.55-1.02) 03/07/19 05:10 Est GFR (MDRD) Af Amer 70 mL/min (>60) 03/07/19 05:10 Est GFR (MDRD) Non-Af 58 mL/min (>60) L 03/07/19 05:10 BUN/Creatinine Ratio 27.3 RATIO (10-20) H 03/07/19 05:10 Glucose 101 mg/dL (74-106) 03/07/19 05:10 Assessment/Plan: Psychotropic Medications: Unnecessary Medications: Bowel Regimen: - Provider Comments Provider responsibility: Provider responsible to enter orders to implement recommendations Provider Comments to Recommendations by Pharmacy: Agree
[2019-03-10 15:34] VITALS: BP 111/56; PULSE 89; RESP 17; TEMP 36.8; O2SAT 95
[2019-03-10] MEDS: Atorvastatin Calcium 10 MG Tablet PO (21:02)
[2019-03-10] MEDS: MELATONIN 10 MG TABLET PO (21:02)
--- NOTE | 2019-03-11 01:45 | NURSING ---
Pt awake. c/o not able to sleep. pt said she only sleeps on her right side and she cant. note left for dr jimenez
[2019-03-11] MEDS: Lisinopril 10 MG Tablet PO (05:33)
[2019-03-11] MEDS: Citalopram 10 MG Tablet PO (05:33)
[2019-03-11] MEDS: Acetaminophen 500 MG Tablet 1000 MG PO ×3 (05:33→21:40)
[2019-03-11] MEDS: hydroCHLOROthiazide 12.5mg 12.5 MG PO (05:33)
--- NOTE | 2019-03-11 06:10 | NURSING ---
vadim wraps appilied
[2019-03-11] MEDS: Iron Polysaccharide Complex 150 MG CAPSULE PO (08:38)
[2019-03-11] MEDS: Multivitamins,Ther W-Minerals Tablet 1 TABLET PO (08:38)
[2019-03-11] MEDS: Aspirin 81 MG TAB.CHEW PO ×2 (08:38→17:05)
[2019-03-11 15:03] VITALS: BP 134/55; PULSE 89; RESP 20; TEMP 37; O2SAT 95
[2019-03-11] MEDS: Atorvastatin Calcium 10 MG Tablet PO (21:40)
[2019-03-11] MEDS: Doxepin Hcl 25 MG Capsule PO (21:40)
--- NOTE | 2019-03-11 22:23 | PCA ---
patient refused oral care and shower tonight but did allow basin bath, delmi care, skin care and to be changed into clean gown. Paxton wraps were taken off.
[2019-03-12] MEDS: Citalopram 10 MG Tablet PO (05:15)
[2019-03-12] MEDS: hydroCHLOROthiazide 12.5mg 12.5 MG PO (05:15)
[2019-03-12] MEDS: Lisinopril 10 MG Tablet PO (05:15)
[2019-03-12] MEDS: Acetaminophen 500 MG Tablet 1000 MG PO ×3 (05:15→21:33)
[2019-03-12] MEDS: Senna/Docusate Sodium 1 Tablet PO (05:40)
[2019-03-12] MEDS: Iron Polysaccharide Complex 150 MG CAPSULE PO (08:41)
[2019-03-12] MEDS: Aspirin 81 MG TAB.CHEW PO ×2 (08:41→17:13)
[2019-03-12] MEDS: Multivitamins,Ther W-Minerals Tablet 1 TABLET PO (08:41)
--- NOTE | 2019-03-12 09:51 | CASEMGMT ---
Social Work IDT met with patient and conference call with dtr for care plan meeting. Discussed patient's progress in therapy. Pt is walking 415 ft with FWW supervision, supervision with ADLs, 10 steps supervision. Pt has f/u appt with surgeon 03/14. Pt and dtr ready to DC home. Pt denies needs for therapy at DC and script for shower chair. Plan: DC home 03/20 with no needs. Fatmata Martin, [employer]
[2019-03-12 16:00] VITALS: BP 133/66; PULSE 88; RESP 17; TEMP 36.9; O2SAT 95
--- NOTE | 2019-03-12 20:24 | DCINST_ITS ---
- Discharge Diagnoses Current Active Problems: Current Active and Chronic Problems Debility (Acute) Osteoarthritis of right knee (Chronic) Hypertension (Chronic) Hyperlipidemia (Chronic) Osteoarthritis (Chronic) History of CT (myocardial infarction) (Chronic) You will use the following diet at home:: No restrictions, Regular Your food should be the consistency of: Regular Your liquids should be the consistency of: Regular/Thin Discharge Activity: Return to Normal Activity, May Shower, Use Walker Weight Bearing Status: Weight bearing as tolerated Call your doctor if you observe: Fever of 101 or Higher, Inability to urinate, Inability to have a bowel movement, Shortness of breath, Chest pain, Uncontrolled pain Allergies/Adverse Reactions: Allergies No Known Allergies Allergy (Verified 03/03/19 05:58) Medications to take at Discharge Hydrochlorothiazide 12.5 mg PO DAILY 02/20/19 Lisinopril [Prinivil] 10 mg PO DAILY 02/20/19 Lovastatin 40 mg PO DAILY 02/20/19 Multivit with Calcium,Iron,Min [Multiple Vitamins For Women] 1 ea PO DAILY 02/20/19 Acetaminophen [Tylenol] 1,000 mg PO Q8 03/06/19 Aspirin [Aspirin, Baby] 81 mg PO BIDCM #28 tab.chew 03/12/19 Aspirin [Aspirin, Baby] 81 mg PO DAILY@0800 tab.chew 03/12/19 Citalopram [Celexa] 10 mg PO DAILY #30 tab 03/12/19 Iron Polysaccharide Complex [Ferrex 150] 150 mg PO DAILYCM #30 cap 03/12/19 traMADol [Ultram] 50 - 100 mg PO Q6H PRN PRN 7 Days #30 tab 03/12/19 The following prescriptions were given: Aspirin [Aspirin, Baby] 81 mg PO BIDCM #28 tab.chew Transmission Status: Pending to [id number] Citalopram [Celexa] 10 mg PO DAILY #30 tab Transmission Status: Pending to [id number] Iron Polysaccharide Complex [Ferrex 150] 150 mg PO DAILYCM #30 cap [facility] traMADol [Ultram] 50 - 100 mg PO Q6H PRN PRN 7 Days #30 tab PRN Reason: Pain Score 4-10/10 Prescription Printed Primary Care Physician: Shira Joe MD [Primary Care Provider] - Please follow up with your Primary Care Physician in: 1 week. Test Results: Test results from this visit will be discussed in further detail at your follow- up appointment, if applicable. Please Follow Up With: Priyanka Please Follow Up With: Nas Barney PA-C When: 2 weeks. Proposed Discharge Date: 03/20/19
--- NOTE | 2019-03-12 20:26 | PCM.DC.SUM ---
Discharge Date and Diagnosis - Problem List Patient Problems: Active and Suspected Problems Debility (Acute) Date of Admission: 03/06/19 Date of Discharge: 03/20/19 - Primary Discharge Diagnosis Active and Suspected Problems Debility (Acute) - Secondary Discharge Diagnosis Chronic Problems Osteoarthritis of right knee (Chronic) Hypertension (Chronic) Hyperlipidemia (Chronic) Osteoarthritis (Chronic) History of [place] (myocardial infarction) (Chronic) Hospital Course and Treatment Imaging Results: 03/12/19 13:51 Diet: Cardiac/Low Cholesterol Is pt able to select menu?: Yes Operations: None Procedures: None Summary of Care Provided: The patient is a 78 year old Female with below past medical history hospitalized for right total knee replacement 03/03/[address] Conway, admitted to TCU with debility, here for rehabilitation, strengthening, prior to discharge home alone. Ferrex 150MG daily added for postoperative anemia, can discontinue later. Aspirin 81MG twice daily for DVT prophylaxis thru 04/03/2019, then back to usual dose Aspirin 81MG daily. Citalopram 10MG daily added for depression, can discontinue later if patient's mood doing well. Discharge home alone. Patient Problems: Active and Suspected Problems Debility (Acute) - Physical Exam Vitals/I&O's: Vital Signs Temp Pulse Resp BP Pulse Ox 98.4 F 88 17 133/66 H 95 03/12/19 16:00 03/12/19 16:00 03/12/19 16:00 03/12/19 16:00 03/12/19 16:00 Oxygen Delivery Method Room Air Weight: 73.964 kg Body Mass Index (BMI) 31.6 Intake and Output for Last 24 Hours 03/10/19 03/11/19 03/12/19 23:59 23:59 23:59 Intake Total 600 / 600 480 / 480 720 / 720 Balance 600 / 600 480 / 480 720 / 720 Current Medications Acetaminophen (Tylenol) 1,000 mg PO Q8 [facility] Last Admin: 03/12/19 16:13 Dose: 1,000 mg Documented by: Aspirin (Aspirin, Baby) 81 mg PO DAILY@0800 [facility] Aspirin (Aspirin, Baby) 81 mg PO BIDCM [facility] Stop: 04/03/19 23:59 Last Admin: 03/12/19 17:13 Dose: 81 mg Documented by: Atorvastatin Calcium (Lipitor) 10 mg PO QHS [facility] Last Admin: 03/11/19 21:40 Dose: 10 mg Documented by: Bisacodyl (Dulcolax) 10 mg PO DAILY PRN PRN Reason: Constipation Citalopram Hydrobromide (Celexa) 10 mg PO DAILY [facility] Last Admin: 03/12/19 05:15 Dose: 10 mg Documented by: Doxepin HCl (Sinequan) 25 mg PO QHS [facility] Last Admin: 03/11/19 21:40 Dose: 25 mg Documented by: Hydrochlorothiazide () 12.5 mg PO DAILY [facility] Last Admin: 03/12/19 05:15 Dose: 12.5 mg Documented by: Lisinopril (Zestril) 10 mg PO DAILY [facility] Last Admin: 03/12/19 05:15 Dose: 10 mg Documented by: Multivitamins/Minerals (Multivitamin With Minerals) 1 tablet PO DAILY@0800 [facility] Last Admin: 03/12/19 08:41 Dose: 1 tablet Documented by: Polyethylene Glycol (Miralax) 17 gm PO DAILY PRN PRN Reason: Constipation Polysaccharide [facility] ([facility]rex 150) [facility] Last Admin: 03/12/19 08:41 Dose: 150 mg Documented by: Senna/Docusate Sodium (Senokot-S, Deonna-Colace) 1 tablet PO PRN PRN PRN Reason: Constipation Last Admin: 03/12/19 05:40 Dose: 1 tablet Documented by: Tramadol HCl (Ultram) 50 - 100 mg PO Q6H PRN PRN PRN Reason: Pain Score 4-10/10 Last Admin: 03/10/19 02:21 Dose: 50 mg Documented by: Tuberculin PPD (Tubersol, Aplisol, Ppd) 5 tu ID [id number] Stop: 03/14/19 10:01 Discharge Diet: No Restrictions Discharge Activity: Return to Normal Activity, May Shower, Use Walker Weight Bearing Status: Weight bearing as tolerated Call your doctor if you observe: Fever of 101 or Higher, Inability to urinate, Inability to have a bowel movement, Shortness of breath, Chest pain, Uncontrolled pain Home Medications: Medications to take at Discharge Hydrochlorothiazide 12.5 mg PO DAILY 02/20/19 Lisinopril [Prinivil] 10 mg PO DAILY 02/20/19 Lovastatin 40 mg PO DAILY 02/20/19 Multivit with Calcium,Iron,Min [Multiple Vitamins For Women] 1 ea PO DAILY 02/20/19 Acetaminophen [Tylenol] 1,000 mg PO Q8 03/06/19 Aspirin [Aspirin, Baby] 81 mg PO BIDCM #28 tab.chew 03/12/19 Aspirin [Aspirin, Baby] 81 mg PO DAILY@0800 tab.chew 03/12/19 Citalopram [Celexa] 10 mg PO DAILY #30 tab 03/12/19 Iron Polysaccharide Complex [Ferrex 150] 150 mg PO DAILYCM #30 cap 03/12/19 traMADol [Ultram] 50 - 100 mg PO Q6H PRN PRN 7 Days #30 tab 03/12/19 Following Prescrptions Were Given to Patient: Aspirin [Aspirin, Baby] 81 mg PO BIDCM #28 tab.chew Transmission Status: Pending to [id number] Citalopram [Celexa] 10 mg PO DAILY #30 tab Transmission Status: Pending to [facility] Iron Polysaccharide Complex [Ferrex 150] 150 mg PO DAILYCM #30 cap Transmission Status: Pending to [facility] traMADol [Ultram] 50 - 100 mg PO Q6H PRN PRN 7 Days #30 tab PRN Reason: Pain Score 4-10/10 Prescription Printed Primary Care Physician: Shira Joe MD [Primary Care Provider] - Please follow up with your Primary Care Physician in: 1 week. Please Follow Up With: Priyanka Please Follow Up With: Nas Barney PA-C When: 2 weeks. Disposition: Home Minutes spent on discharge:: 30 Patient Condition:: Stable Medical Necessity - Tobacco Use Smoking Status: Never smoker Tobacco Use: Non-smoker Meaningful Use Info Meaningful Use Diagnoses (Choose all that apply): None applicable
[2019-03-12] MEDS: Doxepin Hcl 25 MG Capsule PO (21:33)
[2019-03-12] MEDS: Atorvastatin Calcium 10 MG Tablet PO (21:33)
[2019-03-13] MEDS: Acetaminophen 500 MG Tablet 1000 MG PO ×3 (04:44→21:08)
[2019-03-13] MEDS: hydroCHLOROthiazide 12.5mg 12.5 MG PO (04:44)
[2019-03-13] MEDS: Citalopram 10 MG Tablet PO (04:44)
[2019-03-13] MEDS: Lisinopril 10 MG Tablet PO (04:44)
[2019-03-13] MEDS: Polyethylene Glycol 3350 17 GM PACKET PO (06:32)
[2019-03-13] MEDS: Iron Polysaccharide Complex 150 MG CAPSULE PO (08:36)
[2019-03-13] MEDS: Aspirin 81 MG TAB.CHEW PO ×2 (08:36→16:39)
[2019-03-13] MEDS: Multivitamins,Ther W-Minerals Tablet 1 TABLET PO (08:36)
[2019-03-13 11:17] VITALS: PULSE 86; RESP 18; O2SAT 98
[2019-03-13 15:18] VITALS: BP 143/62; PULSE 85; RESP 20; TEMP 36.8; O2SAT 96
[2019-03-13] MEDS: Atorvastatin Calcium 10 MG Tablet PO (21:07)
[2019-03-13] MEDS: Doxepin Hcl 25 MG Capsule PO (21:08)
[2019-03-13] MEDS: Bisacodyl 5 MG Tablet 10 MG PO (21:10)
[2019-03-14] MEDS: hydroCHLOROthiazide 12.5mg 12.5 MG PO (05:38)
[2019-03-14] MEDS: Lisinopril 10 MG Tablet PO (05:38)
[2019-03-14] MEDS: Citalopram 10 MG Tablet PO (05:38)
[2019-03-14] MEDS: Acetaminophen 500 MG Tablet 1000 MG PO ×3 (05:38→22:00)
[2019-03-14 06:13] LABS: Absolute Lymphocyte Count 1.64 X10^3/uL (0.83-4.51); Absolute Neutrophil Count 3.2 X10^3/uL (2.0-7.7); Basophil# 0.04 X10^3/uL; Basophil% 0.7 % (0-1); Eosinophils% 3.5 % (0-5); Hematocrit 28.1 % (37-47); Hemoglobin 8.7 g/dL (12.0-15.0); Lymphocyte # 1.64 X10^3/ul (4.0); Lymphocyte % 28.9 % (19-41); Mean Corpuscular Hgb 29.9 pg (27.0-32.0); Mean Corpuscular Volume 96.6 fL (81-99); Mean Platelet Vol. 9.1 fl (6.2-12.0); Monocyte# 0.53 X10^3/uL; Monocyte% 9.3 % (0-10); NRBC Flagged by Analyzer 0 % (0-5); Neutrophil # 3.22 X10^3/uL (2.7-7.7); Neutrophil % 56.9 % (47-70); Platelet Count 329 K/mm3 (150-450); RBC Distribution Width CV 15.3 % (11.6-14.6); RBC Distribution Width SD 53.6 fl (35.1-43.9); Red Blood Count 2.91 M/mm3 (4.2-5.4); White Blood Count 5.7 K/mm3 (4.4-11.0)
[2019-03-14 06:32] LABS: Anion Gap 4 (5-15); BUN 37 mg/dL (7-18); BUN/Creat Ratio 39.1 RATIO (10-20); Calcium,Total 8.7 mg/dL (8.5-10.1); Chloride 106 mmol/L (98-107); Creatinine, Serum 0.95 mg/dL (0.55-1.02); EST Glomerular Filtration Rate 61 mL/min (>60); Est Glom Filt Rate - Afr Amer 74 mL/min (>60); Estimated Creatinine Clearance 38.02 ml/min; Glucose 98 mg/dL (74-106); Potassium 4.5 mmol/L (3.5-5.1); Sodium Level 138 mmol/L (136-145)
[2019-03-14] MEDS: Iron Polysaccharide Complex 150 MG CAPSULE PO (10:11)
[2019-03-14] MEDS: Aspirin 81 MG TAB.CHEW PO ×2 (10:11→16:52)
[2019-03-14] MEDS: Multivitamins,Ther W-Minerals Tablet 1 TABLET PO (10:11)
[2019-03-14] MEDS: Tuberculin,Purif.prot.deriv. 50 TU/ML Vial 5 ML ID (11:00)
[2019-03-14 15:50] VITALS: BP 149/55; PULSE 88; RESP 18; TEMP 36.6; O2SAT 98
[2019-03-14] MEDS: Doxepin Hcl 25 MG Capsule PO (22:00)
[2019-03-14] MEDS: Atorvastatin Calcium 10 MG Tablet PO (22:00)
[2019-03-15] MEDS: Citalopram 10 MG Tablet PO (05:44)
[2019-03-15] MEDS: Lisinopril 10 MG Tablet PO (05:44)
[2019-03-15] MEDS: hydroCHLOROthiazide 12.5mg 12.5 MG PO (05:44)
[2019-03-15] MEDS: Acetaminophen 500 MG Tablet 1000 MG PO ×3 (05:45→21:53)
--- NOTE | 2019-03-15 09:10 | NURSING ---
PER HARMONY FROM THERAPY,FAMILY MAY WALK PT IN [place].
[2019-03-15] MEDS: Multivitamins,Ther W-Minerals Tablet 1 TABLET PO (09:12)
[2019-03-15] MEDS: Iron Polysaccharide Complex 150 MG CAPSULE PO (09:12)
[2019-03-15] MEDS: Aspirin 81 MG TAB.CHEW PO ×2 (09:13→16:05)
[2019-03-15 15:22] VITALS: BP 95/48; PULSE 78; RESP 16; TEMP 36.8; O2SAT 98
[2019-03-15] MEDS: Atorvastatin Calcium 10 MG Tablet PO (21:53)
[2019-03-15] MEDS: Doxepin Hcl 25 MG Capsule PO (21:53)
[2019-03-16] MEDS: Acetaminophen 500 MG Tablet 1000 MG PO ×3 (06:16→21:59)
[2019-03-16] MEDS: Citalopram 10 MG Tablet PO (06:16)
[2019-03-16] MEDS: Lisinopril 10 MG Tablet PO (06:16)
[2019-03-16] MEDS: hydroCHLOROthiazide 12.5mg 12.5 MG PO (06:17)
[2019-03-16 06:19] VITALS: BP 135/79; PULSE 89
[2019-03-16] MEDS: Iron Polysaccharide Complex 150 MG CAPSULE PO (07:32)
[2019-03-16] MEDS: Multivitamins,Ther W-Minerals Tablet 1 TABLET PO (07:32)
[2019-03-16] MEDS: Aspirin 81 MG TAB.CHEW PO ×2 (07:32→16:51)
[2019-03-16] MEDS: Bisacodyl 5 MG Tablet 10 MG PO (07:34)
--- NOTE | 2019-03-16 10:47 | NURSING ---
DULCOLAX GIVEN BY THIS NURSE.
[2019-03-16 15:39] VITALS: BP 117/56; PULSE 77; RESP 17; TEMP 37.2; O2SAT 98
[2019-03-16] MEDS: Atorvastatin Calcium 10 MG Tablet PO (21:59)
[2019-03-16] MEDS: Doxepin Hcl 25 MG Capsule PO (22:00)
[2019-03-17] MEDS: hydroCHLOROthiazide 12.5mg 12.5 MG PO (05:10)
[2019-03-17] MEDS: Citalopram 10 MG Tablet PO (05:10)
[2019-03-17] MEDS: Lisinopril 10 MG Tablet PO (05:10)
[2019-03-17] MEDS: Acetaminophen 500 MG Tablet 1000 MG PO ×3 (05:10→22:03)
[2019-03-17] MEDS: Iron Polysaccharide Complex 150 MG CAPSULE PO (08:58)
[2019-03-17] MEDS: Multivitamins,Ther W-Minerals Tablet 1 TABLET PO (08:58)
[2019-03-17] MEDS: Aspirin 81 MG TAB.CHEW PO ×2 (08:59→17:37)
--- NOTE | 2019-03-17 09:56 | NURSING ---
pt repots doxepin has not been effective to assist with sleep, Dr jimenez updated, increased dose tonight.
[2019-03-17 16:00] VITALS: BP 110/48; PULSE 90; RESP 16; TEMP 36.4; O2SAT 97
[2019-03-17] MEDS: Doxepin Hcl 25 MG Capsule 50 MG PO (22:03)
[2019-03-17] MEDS: Atorvastatin Calcium 10 MG Tablet PO (22:03)
[2019-03-18] MEDS: Acetaminophen 500 MG Tablet 1000 MG PO ×3 (05:32→21:45)
[2019-03-18] MEDS: Citalopram 10 MG Tablet PO (05:32)
[2019-03-18] MEDS: Lisinopril 10 MG Tablet PO (05:32)
[2019-03-18] MEDS: hydroCHLOROthiazide 12.5mg 12.5 MG PO (05:32)
[2019-03-18] MEDS: Senna/Docusate Sodium 1 Tablet PO (05:36)
[2019-03-18] MEDS: Multivitamins,Ther W-Minerals Tablet 1 TABLET PO (08:45)
[2019-03-18] MEDS: Iron Polysaccharide Complex 150 MG CAPSULE PO (08:46)
[2019-03-18] MEDS: Aspirin 81 MG TAB.CHEW PO ×2 (08:46→17:07)
[2019-03-18 13:54] VITALS: PULSE 82; RESP 16; O2SAT 97
[2019-03-18 15:12] VITALS: BP 129/41; PULSE 85; RESP 20; TEMP 36.7; O2SAT 95
[2019-03-18 15:13] VITALS: BP 117/46
[2019-03-18] MEDS: Atorvastatin Calcium 10 MG Tablet PO (21:46)
[2019-03-18] MEDS: Doxepin Hcl 25 MG Capsule 50 MG PO (21:46)
[2019-03-19] MEDS: hydroCHLOROthiazide 12.5mg 12.5 MG PO (05:58)
[2019-03-19] MEDS: Citalopram 10 MG Tablet PO (05:58)
[2019-03-19] MEDS: Acetaminophen 500 MG Tablet 1000 MG PO ×3 (05:58→21:17)
[2019-03-19] MEDS: Lisinopril 10 MG Tablet PO (05:58)
[2019-03-19] MEDS: Senna/Docusate Sodium 1 Tablet PO (06:02)
[2019-03-19] MEDS: Polyethylene Glycol 3350 17 GM PACKET PO (06:02)
[2019-03-19] MEDS: Aspirin 81 MG TAB.CHEW PO ×2 (08:43→15:56)
[2019-03-19] MEDS: Iron Polysaccharide Complex 150 MG CAPSULE PO (08:43)
[2019-03-19] MEDS: Multivitamins,Ther W-Minerals Tablet 1 TABLET PO (08:43)
[2019-03-19 16:00] VITALS: BP 131/41; PULSE 91; RESP 19; TEMP 36.8; O2SAT 99
[2019-03-19] MEDS: Atorvastatin Calcium 10 MG Tablet PO (21:17)
[2019-03-19] MEDS: Doxepin Hcl 25 MG Capsule 50 MG PO (21:18)
[2019-03-20] MEDS: hydroCHLOROthiazide 12.5mg 12.5 MG PO (05:29)
[2019-03-20] MEDS: Citalopram 10 MG Tablet PO (05:29)
[2019-03-20] MEDS: Acetaminophen 500 MG Tablet 1000 MG PO (05:29)
[2019-03-20] MEDS: Lisinopril 10 MG Tablet PO (05:29)
[2019-03-20 10:00] VITALS: PULSE 88; RESP 16; O2SAT 99
[2019-03-20 10:14] VITALS: BP 117/58; PULSE 87; RESP 20; TEMP 36.5; O2SAT 98
[2019-03-20] MEDS: Multivitamins,Ther W-Minerals Tablet 1 TABLET PO (10:35)
[2019-03-20] MEDS: Aspirin 81 MG TAB.CHEW PO ×2 (10:35→10:43)
[2019-03-20] MEDS: Iron Polysaccharide Complex 150 MG CAPSULE PO (10:35)
[2019-03-20 10:45] VITALS: BP 117/58; PULSE 87; RESP 20; TEMP 36.5; O2SAT 98
== END 2019-03-20 10:45 | disposition home or self-care (01) | DRG 561 ==
PROVIDERS: Admitting Provider Family Medicine Geriatric Medicine; Family Provider Internal Medicine Infectious Disease; PCP Internal Medicine Infectious Disease; Referring Provider Family Medicine Geriatric Medicine; Visit Provider Family Medicine Geriatric Medicine
DX: Z47.1 Aftercare following joint replacement surgery (principal); Z96.651 Presence of right artificial knee joint; E78.5 Hyperlipidemia, unspecified; I10 Essential (primary) hypertension; I25.2 Old myocardial infarction; F32.9 Major depressive disorder, single episode, unspecified; D64.9 Anemia, unspecified
CPT/HCPCS: 36415; 80048; 85025; 97110; 97116; 97161; 97165; 97530; 97535; 97802

== ENCOUNTER → 2019-07-09 12:55 | Outpatient (CLI) | payer MEDICARE, MEDICAID, SELFPAY ==
--- NOTE | 2019-07-09 13:47 | CT_ITS ---
STUDY: CT LEFT LOWER EXTREMITY REASON FOR EXAM: Left knee osteoarthritis, with varus deformity, surgical planning. TECHNIQUE: Transaxial CT imaging of the knee, hip and ankle were performed. Coronal and sagittal images were reformatted. Individualized dose optimization techniques were used for this CT. COMPARISON: None. FINDINGS: Left knee: There are marginal osteophytes of the medial femorotibial compartment and a small surface osteophyte of the medial femoral condyle without joint space narrowing of the medial femorotibial compartment. There are marginal osteophytes, severe joint space narrowing of the lateral femorotibial compartment with erosion of the lateral tibial plateau and subchondral cysts (coronal reconstructions 25-36). There are marginal osteophytes and joint space narrowing of the patellofemoral compartment (sagittal reconstructions 32-37). Normal proximal tibiofibular articulation. There is no joint effusion. The quadriceps tendon is grossly normal. There is a small enthesophyte at the superior pole of the patella. The patellar tendon is grossly normal. Normal Hoffa''s fat pad. There is an ossification in the proximal medial collateral ligament (coronal reconstruction 27) from remote injury. There is an ossification at the posterior aspect of the knee in a popliteal cyst of axial images 139-174). There is mild vascular calcification. Left hip: There are small marginal osteophytes of the inferior left acetabulum and joint space narrowing of the medial left hip (coronal reconstruction 50). Normal proximal left femur. Left ankle: Normal tibiotalar, posterior subtalar, talonavicular and calcaneocuboid articulations. Normal distal tibia, distal fibula, talus, navicular. There are posterior and plantar calcaneal enthesophytes) sagittal reconstructions 27-30). CT/Extremity Lower without Contra IMPRESSION: Left knee arthrosis with erosion of the lateral tibial plateau. Left hip arthrosis. Popliteal cyst containing an intra-articular body. 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 Electronically Signed: Sancho Cervantes MD at 14:52 EST Tel , Service support ,
== END ==
PROVIDERS: PCP Internal Medicine Infectious Disease; Referring Provider Physician Assistant; Visit Provider Physician Assistant
DX: M17.12 Unilateral primary osteoarthritis, left knee (principal); M21.162 Varus deformity, not elsewhere classified, left knee
CPT/HCPCS: 73700

== ENCOUNTER 2019-07-21 07:30 | Observation (INO) | payer MEDICARE, MEDICAID, SELFPAY ==
[2019-07-09 13:23] VITALS: BP 126/74; PULSE 72; RESP 16; TEMP 37.2; O2SAT 100; BMI 30.9
[2019-07-09 14:11] LABS: Absolute Lymphocyte Count 1.83 X10^3/uL (0.83-4.51); Basophil# 0.04 X10^3/uL; Basophil% 0.9 % (0-1); Eosinophil# 0.18 X10^3/uL; Eosinophils% 3.8 % (0-5); Hematocrit 37.8 % (37-47); Hemoglobin 11.9 g/dL (12.0-15.0); Lymphocyte # 1.83 X10^3/ul (4.0); Mean Corp Hgb Conc 31.5 g/dL (32-36); Mean Corpuscular Hgb 29.1 pg (27.0-32.0); Mean Corpuscular Volume 92.4 fL (81-99); Mean Platelet Vol. 9.9 fl (6.2-12.0); Monocyte# 0.61 X10^3/uL; NRBC Flagged by Analyzer 0 % (0-5); Neutrophil # 2.02 X10^3/uL (2.7-7.7); Neutrophil % 43.1 % (47-70); Platelet Count 222 K/mm3 (150-450); RBC Distribution Width CV 15.7 % (11.6-14.6); RBC Distribution Width SD 52.9 fl (35.1-43.9); Red Blood Count 4.09 M/mm3 (4.2-5.4); White Blood Count 4.7 K/mm3 (4.4-11.0)
[2019-07-09 14:32] LABS: Anion Gap 4 (5-15); BUN 39 mg/dL (7-18); BUN/Creat Ratio 33.9 RATIO (10-20); Calcium,Total 9.3 mg/dL (8.5-10.1); Chloride 111 mmol/L (98-107); Creatinine, Serum 1.15 mg/dL (0.55-1.02); EST Glomerular Filtration Rate 49 mL/min (>60); Est Glom Filt Rate - Afr Amer 59 mL/min (>60); Estimated Creatinine Clearance 30.91 ml/min; Glucose 96 mg/dL (74-106); Potassium 4.5 mmol/L (3.5-5.1); Sodium Level 140 mmol/L (136-145)
[2019-07-21] VITALS (10 sets, daily range): BP systolic 102–119; BP diastolic 51–82; PULSE 72–95; RESP 14–18; TEMP 36.4–37.2; O2SAT 94–100; BMI 30.9
--- NOTE | 2019-07-21 | KNEE_PTH ---
PATIENT: JASON HUYNH LOC: [facility] U#:[id number] AGE/SX: 79/F ROOM: [place]322 RE07/21/[address]: Dr. Joaquin Conway DO : 1940 BED: 1 DIS: 07/22/2019 SPEC #: [id number] RECD: 07/21/19 13:21 STATUS: KAMLESH RHETT #: [id number] MAYTE: 07/21/19 00:[address]: Joaquin Conway DEPT: SURGICAL PATHOLOGY RECD BY: Eliezer Thompson ENTERED: 07/21/19 13:21 SP TYPE: TOTAL KNEE OTHR DR: Dr. Shira Joe MD Tissues: Knee, NOS Procedures: Decalcification bone/plaque Surgery Specimen Level IV HEADER OPERATION: ERAS, left knee replacement, robotic arm assist PRE-OP DIAGNOSIS: Unilateral primary osteoarthritis TISSUE SUBMITTED: Bone and soft tissue left knee MICROSCOPIC DIAGNOSIS Bone and soft tissue, left knee, total knee replacement/resection: Pieces of bone with degenerative osteoarthritic changes. Fibroadipose tissue, fibroconnective tissue and moderately reactive synovial tissue. ASHLY:camila 07/24/19 MICROSCOPIC DESCRIPTION Slides are reviewed. GROSS DESCRIPTION Received is one container designated bone and soft tissue left knee. The specimen consists of multiple fragments of carlson-yellow bone measuring in aggregate 11 x 11 x 3.5 cm. Also in the specimen container are multiple fragments of yellow-white soft tissue measuring in aggregate 7 x 5 x 2 cm. A number of bony fragments contain articular surfaces consistent with tibial plateau and femoral condyle and displaying prominent osteophyte formation, eburnation, and bone erosion. Director Of Teaching And Learning sections are submitted in two cassettes as follows: 1 - soft tissue, 2 - bone after decalcification. / ASHLY:camlia 07/21/19 TC:5 CPT: 80917, 43147
[2019-07-21] MEDS: Acetaminophen 500 MG Tablet 1000 MG PO ×3 (06:07→21:11)
[2019-07-21] MEDS: Gabapentin 600 MG Tablet PO (06:08)
[2019-07-21 06:11] LABS: Bedside Glucose 64 mg/dL (70-110)
[2019-07-21] MEDS: Lactated Ringers 1,000 ML 100 ML IV ×4 (06:27→22:45)
[2019-07-21] MEDS: Cefazolin 2 GM in 0.9% Normal Saline 100 ML IV (07:37)
--- NOTE | 2019-07-21 10:17 | RAD_ITS ---
STUDY: X-RAY - LEFT KNEE REASON FOR EXAM: Female, 79 years old. Post op TECHNIQUE: 2 view(s) of the knee. COMPARISON: None. FINDINGS: Total knee arthroplasty in anatomic alignment. Subcutaneous pockets of air, air within the joint space, subcutaneous edema and skin clips. Maintained lateral and medial femorotibial compartment. Normal patellofemoral articulation. RAD/Knee 1 or 2 Views IMPRESSION: Total knee arthroplasty without complications. Electronically Signed: Beata Ross MD at 6:59 EST , Service support ,
[2019-07-21 12:37] LABS: Hematocrit 30.8 % (37-47); Hemoglobin 9.8 g/dL (12.0-15.0); Mean Corp Hgb Conc 31.8 g/dL (32-36); Mean Corpuscular Hgb 30.2 pg (27.0-32.0); Mean Corpuscular Volume 94.8 fL (81-99); Mean Platelet Vol. 10.1 fl (6.2-12.0); Platelet Count 150 K/mm3 (150-450); RBC Distribution Width CV 15.2 % (11.6-14.6); RBC Distribution Width SD 53.2 fl (35.1-43.9); Red Blood Count 3.25 M/mm3 (4.2-5.4); White Blood Count 4.8 K/mm3 (4.4-11.0)
[2019-07-21 12:45] LABS: Anion Gap 8 (5-15); BUN 33 mg/dL (7-18); Chloride 110 mmol/L (98-107); Creatinine, Serum 1.22 mg/dL (0.55-1.02); EST Glomerular Filtration Rate 45 mL/min (>60); Est Glom Filt Rate - Afr Amer 55 mL/min (>60); Estimated Creatinine Clearance 29.14 ml/min; Glucose 167 mg/dL (74-106); Potassium 3.5 mmol/L (3.5-5.1); Sodium Level 141 mmol/L (136-145)
[2019-07-21] MEDS: Cefazolin 1 GM/50 ML BAG IV ×2 (15:27→22:46)
--- NOTE | 2019-07-21 16:33 | OP.PCM_ITS ---
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
[2019-07-21] MEDS: Aspirin 81 MG TAB.CHEW PO (21:11)
[2019-07-21] MEDS: Atorvastatin Calcium 10 MG Tablet PO (21:11)
[2019-07-21] MEDS: Senna/Docusate Sodium 1 Tablet 2 TABLET PO (21:11)
[2019-07-22 00:59] VITALS: BP 101/51; PULSE 67; RESP 14; TEMP 36.6; O2SAT 98
[2019-07-22 05:19] VITALS: BP 115/63; PULSE 71; RESP 16; TEMP 36.6; O2SAT 100
[2019-07-22] MEDS: Acetaminophen 500 MG Tablet 1000 MG PO ×2 (05:24→14:04)
[2019-07-22 06:01] LABS: Hematocrit 28.4 % (37-47); Hemoglobin 8.9 g/dL (12.0-15.0); Mean Corp Hgb Conc 31.3 g/dL (32-36); Mean Corpuscular Hgb 29.4 pg (27.0-32.0); Mean Corpuscular Volume 93.7 fL (81-99); Mean Platelet Vol. 10.1 fl (6.2-12.0); Platelet Count 148 K/mm3 (150-450); RBC Distribution Width CV 15.3 % (11.6-14.6); RBC Distribution Width SD 52.8 fl (35.1-43.9); Red Blood Count 3.03 M/mm3 (4.2-5.4); White Blood Count 5.7 K/mm3 (4.4-11.0)
[2019-07-22 06:14] LABS: BUN 31 mg/dL (7-18); BUN/Creat Ratio 24.4 RATIO (10-20); Calcium,Total 7.8 mg/dL (8.5-10.1); Chloride 106 mmol/L (98-107); Creatinine, Serum 1.27 mg/dL (0.55-1.02); EST Glomerular Filtration Rate 43 mL/min (>60); Est Glom Filt Rate - Afr Amer 53 mL/min (>60); Estimated Creatinine Clearance 27.99 ml/min; Glucose 79 mg/dL (74-106); Potassium 4.3 mmol/L (3.5-5.1); Sodium Level 136 mmol/L (136-145)
[2019-07-22 06:15] LABS: Anion Gap 5 (5-15)
--- NOTE | 2019-07-22 07:53 | PCM.PN.ORT ---
Subjective: Patient sitting at bedside eating breakfast. Patient states her pain is very well managed. Patient denies chest pain, shortness of breath, calf pain, nausea vomiting. Patient states she is ready for discharge home where she will continue with outpatient therapy. She has no other complaints at this time. Objective: Patient is afebrile, neurovascular is otherwise intact. Patient has good plantar flexion dorsiflexion of the bilateral ankles and feet. Patient speaking in full sentences with no obvious respiratory distress. - Physical Exam Vitals/I&O's: Vital Signs Temp Pulse Resp BP Pulse Ox 97.9 F 71 16 115/63 100 07/22/19 05:19 07/22/19 05:19 07/22/19 05:19 07/22/19 05:19 07/22/19 05:19 Oxygen Flow Rate (L/min) 6 Oxygen Delivery Method Room Air Weight: 74.2 kg Body Mass Index (BMI) 30.9 Intake and Output for Last 24 Hours 07/20/19 07/21/19 07/22/19 23:59 23:59 23:59 Intake Total 3405.00 / 3405.00 738.33 / 738.33 Output Total 300 / 300 Balance 3105.00 / 3105.00 738.33 / 738.33 General: Alert, Oriented x3, Cooperative HEENT: PERRLA Oral: Moist Mucosa Neurological: Cranial nerves II-XII grossly intact Psych/Mental Status: Normal Affect, Alert and oriented to time, place, person, mood and affect Laboratory Results 07/21/19 12:15: WBC 4.8, RBC 3.25 L, Hgb 9.8 L, Hct 30.8 L, MCV 94.8, MCH 30.2, MCHC 31.8 L, RDW Std Deviation 53.2 H, RDW Coeff of Tiffany 15.2 H, Plt Count 150, MPV 10.1 07/21/19 12:15: Sodium 141, Potassium 3.5, Chloride 110 H, Carbon Dioxide 23.0, Anion Gap 8, BUN 33 H, Creatinine 1.22 H, Estim Creat Clear Calc 29.14, Est GFR (MDRD) Af Amer 55 L, Est GFR (MDRD) Non-Af 45 L, BUN/Creatinine Ratio 27.0 H, Glucose 167 H, Calcium 8.0 L 07/22/19 05:37: WBC 5.7, RBC 3.03 L, Hgb 8.9 L, Hct 28.4 L, MCV 93.7, MCH 29.4, MCHC 31.3 L, RDW Std Deviation 52.8 H, RDW Coeff of Tiffany 15.3 H, Plt Count 148 L, MPV 10.1 07/22/19 05:37: Sodium 136, Potassium 4.3, Chloride 106, Carbon Dioxide 25.0, Anion Gap 5, BUN 31 H, Creatinine 1.27 H, Estim Creat Clear Calc 27.99, Est GFR (MDRD) Af Amer 53 L, Est GFR (MDRD) Non-Af 43 L, BUN/Creatinine Ratio 24.4 H, Glucose 79, Calcium 7.8 L Current Medications Acetaminophen (Tylenol) 1,000 mg PO Q8 [facility] Last Admin: 07/22/19 05:24 Dose: 1,000 mg Documented by: Aspirin (Aspirin, Baby) 81 mg PO BID [facility] Last Admin: 07/21/19 21:11 Dose: 81 mg Documented by: Atorvastatin Calcium (Lipitor) 10 mg PO QHS [facility] Last Admin: 07/21/19 21:11 Dose: 10 mg Documented by: Hydrochlorothiazide () 12.5 mg PO DAILY [facility] Sodium Chloride () 250 mls @ 15 mls/hr IV .[id number] PRN PRN Reason: Saline Flush Sodium Chloride () 250 mls @ 15 mls/hr IV .[id number] PRN PRN Reason: Additional IVPB Infusion Insulin Human Lispro (Humalog Kwikpen (Bkc)) 1 - 6 unit SC Q4H PRN PRN; Protocol PRN Reason: BG>/= 180, SEE PROTOCOL Lisinopril (Zestril) 20 mg PO DAILY [facility] Multivitamins (Multivitamin) 1 tablet PO DAILY@0800 [facility] Ondansetron HCl (Zofran) 4 mg IV Q8H PRN PRN PRN Reason: NAUSEA Oxycodone HCl (Oxyir) 5 - 10 mg PO Q4H PRN PRN PRN Reason: Pain Score 4-10/10 Promethazine HCl (Phenergan) 12.5 mg IM Q6H PRN PRN; Protocol PRN Reason: NAUSEA/VOMITING Senna/Docusate Sodium (Senokot-S, Deonna-Colace) 2 tablet PO BID [facility] Last Admin: 07/21/19 21:11 Dose: 2 tablet Documented by: Sodium Chloride () 5 - 15 ml IV UD PRN PRN Reason: SALINE FLUSH Sodium Chloride () 10 - 40 ml IV UD PRN PRN Reason: SALINE FLUSH Medical Necessity - Tobacco Use Smoking Status: Never smoker Tobacco Use: Non-smoker Assessment/Plan All Active Problems Debility (Acute) Status post left total knee arthroplasty Plan 1. Continue all pain medications as prescribed 2. Continue physical therapy, weight-bear as tolerated with walker 3. Aspirin 325 mg 1 p.o. every 12 hours x30 days for postop DVT prophylaxis 4. Encourage incentive spirometry 5. Discharge home today to continue with outpatient home therapy. 6. Follow-up as scheduled, see pink sheet
--- NOTE | 2019-07-22 08:04 | DCINST_ITS ---
Discharge Diet: No Restrictions Discharge Activity: May Not Drive, May Shower, Use Walker May shower in (days): 3 Ice area for (Minutes): 20 - each hour while awake. Weight Bearing Status: Weight bearing as tolerated Elevate: Operative Extremity Additional Activity Instructions:: Wear elastic stockings for 2 weeks after your surgery. Call your doctor if your incision/area has: Continuous Slow Oozing, Sudden Increased Bleeding, Increased Pain/ Swelling, Increased Redness, Foul Smelling Discharge Call your doctor if you observe: Fever of 101 or Higher, Coldness, Increased Pain - in extremity, Numbness or Tingling, Change in Color, Calf discomfort, Uncontrolled pain Change Dressing in (Days):: 0 - and daily as needed. Remove Dressing in (days):: 8 Cleanse incision/area with: Soap & Water Allergies/Adverse Reactions: Allergies No Known Allergies Allergy (Verified 03/03/19 05:58) Medications to take at Discharge Hydrochlorothiazide 12.5 mg PO DAILY 02/20/19 Lisinopril [Prinivil] 20 mg PO DAILY 02/20/19 Lovastatin 40 mg PO QHS 02/20/19 Multivit with Calcium,Iron,Min [Multiple Vitamins For Women] 1 ea PO DAILY 02/20/19 Acetaminophen [Tylenol] 1,000 mg PO Q8 #90 tab 07/22/19 Aspirin [Aspirin, Baby] 81 mg PO BID #60 tab.chew 07/22/19 Oxycodone [Oxyir] 5 - 10 mg PO Q4H PRN PRN 7 Days #60 tab 07/22/19 Senna/Docusate Sodium [Senokot-S] 2 tab PO BID tab 07/22/19 The following prescriptions were given: Aspirin [Aspirin, Baby] 81 mg PO BID #60 tab.chew Transmission Status: Sent to [facility] Oxycodone [Oxyir] 5 - 10 mg PO Q4H PRN PRN 7 Days #60 tab PRN Reason: Pain Score 4-10/10 Transmission Status: Sent to [facility] Acetaminophen [Tylenol] 1,000 mg PO Q8 #90 tab Transmission Status[facility] Primary Care Physician: Shira Joe MD [Primary Care Provider] - Test Results: Test results from this visit will be discussed in further detail at your follow- up appointment, if applicable. Please Follow Up With: Nas Barney PA-C When: as scheduled
[2019-07-22] MEDS: hydroCHLOROthiazide 12.5mg 12.5 MG PO (08:24)
[2019-07-22] MEDS: Lisinopril 20 MG Tablet PO (08:24)
[2019-07-22] MEDS: Aspirin 81 MG TAB.CHEW PO (08:24)
[2019-07-22] MEDS: Multivitamins,Therapeutic Tablet 1 TABLET PO (08:24)
[2019-07-22 08:25] VITALS: BP 104/47; PULSE 98; RESP 16; TEMP 36.3; O2SAT 100
--- NOTE | 2019-07-22 11:25 | CASEMGMT ---
DAVID ALMAGUER Face to Face with patient for initial transition planning/care coordination assessment. DAVID ALMAGUER introduced self and role at [facility]. Patient sitting in chair, alert and oriented. Patient willing to participate in assessment and is able to answer all questions appropriately. Care providers, pharmacy, and demographics verified. Patient wishes to discharge home with [facility]. DAVID ALMAGUER called [facility] and they have not received order for home therapy. Referral and HHC order sent to [facility] and they are able to accept the patient. RN ROSINA updated the patients. Patient states she has no further needs or concerns at this time. CM to follow for discharge planning needs that may arise. PCP: Tatyana Specialists: Ashanti manager provider relations Preferred Pharmacy: son [facility] Prescription Benefit: yes Living Will/HPOA: none LNOK: daughter Living Arrangements: Patient lives with daughter in basement apartment and daughter upstairs. Patient independent at home prior to surgery Transportation: daughter DME/HHC: Patient has shower chair, raised toilet, cane, walker. Disposition Plan: Patient to discharge home with home therapy, family support, and follow-up plans in place. Barbara WELLSN, RN, CM
[2019-07-22 14:05] VITALS: BP 111/54; PULSE 88; RESP 16; TEMP 36.9; O2SAT 94
--- NOTE | 2019-07-22 14:19 | CASEMGMT ---
Case Management Progress Note: This justowriter operator to patient bedside, introduced self and role. Explained/reviewed PARKER form with patient in regards to current treatment during this hospital stay. Informed Outpatient billing is determined by her insurance policy and continual review is conducted to determine any changes in condition that may warrant Inpatient stay. All questions addressed. Patient acknowledged and stated understanding. PARKER form signed and placed in patient hard chart, patient provided a copy. KELLEE Armenta
== END 2019-07-22 14:22 | disposition home health service (06) ==
LOC: SDC 13:09 → MS3 13:09
PROVIDERS: Anesthesiology; Admitting Provider Orthopaedic Surgery; PCP Internal Medicine Infectious Disease; Referring Provider Orthopaedic Surgery; Visit Provider Orthopaedic Surgery
PROC: 0SRD0JZ Replacement of Left Knee Joint with Synthetic Substitute, Open Approach (ICD-10-PCS; CPT 27447; principal; 2019-07-21 06:45)
DX: M17.12 Unilateral primary osteoarthritis, left knee (principal); Z79.899 Other long term (current) drug therapy; E78.00 Pure hypercholesterolemia, unspecified; I10 Essential (primary) hypertension; I25.2 Old myocardial infarction
CPT/HCPCS: 01400; 27447; 64447; S2900; 36415; 73560; 80048; 82962; 83735; 85025; 85027; 87081; 88305; 88311; 96361; 96365; 96366; 97110; 97162; 97166; 97530; 97535; 99218; 99251; C1776; J7120; G0378; G0379; G0463; J2405